=== PATIENT | female | born 1975 | race Caucasian/White ===

== ENCOUNTER 2019-12-01 15:44 | Emergency (ER) | payer MEDICAID ==
[~2019-12-01] VITALS: Ht 162.6 cm; Wt 90.7 kg
[2019-12-01 16:09] VITALS: BP 199/110
--- NOTE | 2019-12-01 16:16 | NUR ---
PT AMB TO BED 12. HANED ON URINE CUP.
--- NOTE | 2019-12-01 16:30 | NUR ---
44 YEAR OLD FEMALE STATES THAT SHE WANTS AN STD TEST AFTER TESTED POSITIVE FOR SYPHILLIS. PT AOX4, BREATHING EVEN AND UNLABORED, SKIN WARM AND DRY. BED IN LOWEST POSITION, LOCKED, BED RAIL UPX1. PMH - HTN ALLERGIES - NKA
[2019-12-01] MEDS ORDERED: lisinopriL 20 MG TAB PO ONE (16:50)
[2019-12-01] MEDS ORDERED: PENICILLIN G BENZATHINE L-A 1.2 MU/2 ML SYR IM ONE (16:50)
[2019-12-01] MEDS ORDERED: METOPROLOL 25 MG TAB PO ONE (16:50)
[2019-12-01] MEDS ORDERED: cefTRIAXone 250 MG in LIDOCAINE MPF 1% 0.9 ML IM ONE (16:50)
[2019-12-01] MEDS ORDERED: AZITHROMYCIN 250 MG TAB PO ONE (16:50)
[2019-12-01] MEDS ORDERED: cefTRIAXone 250 MG VIAL ONE (16:54)
[2019-12-01] MEDS ORDERED: LIDOCAINE MPF 1% 5 ML ONE (16:55)
--- NOTE | 2019-12-01 17:50 | NUR ---
Patient discharged with v/s stable. Written and verbal after care instructions about STDs, syphilis, and hypertension given and explained. Patient alert, oriented and verbalized understanding of instructions. Ambulatory with steady gait. All questions addressed prior to discharge. ID band removed. Patient advised to follow up with PMD. Rx of metoprolol, lisinopril given. Patient educated on indication of medication including possible reaction and side effects. Opportunity to ask questions provided and answered.
[2019-12-01 17:52] VITALS: BP 168/82
[2019-12-01] MEDS ORDERED: DOPPLER MC ONE (18:37)
[2019-12-01 19:37] LABS: APPEARANCE,URINE SL CLOUDY (CLEAR); BILIRUBIN,URINE NEGATIVE (NEGATIVE); BLOOD, URINE NEGATIVE (NEGATIVE); COLOR,URINE YELLOW (YELLOW); LEUKOCYTE ESTERASE ,URINE NEGATIVE (NEGATIVE); NITRITE, URINE NEGATIVE (NEGATIVE); PH,URINE 7.5 (5.0-9.0); UGLUCOSE 3+ (NEGATIVE)
[2019-12-03 12:19] LABS: RAPID PLASMA REAGIN NON-REACTIVE (Non Reactiv)
[2019-12-05 06:07] LABS: CHLAMYDIA TRACHOMATIS AMP DNA Negative (Negative)
== END 2019-12-01 17:50 | disposition home or self-care (01) ==
LOC: MED 15:44
DX: I10 Essential (primary) hypertension (principal); Z11.3 Encounter for screening for infections with a predominantly sexual mode of transmission; Z98.890 Other specified postprocedural states
CPT/HCPCS: 36415; 81003; 86592; 86703; 87491; 96372; 99284; J0561; J0696; J2001